=== PATIENT | male | born 1975 | race Two or more races ===

== ENCOUNTER 2017-05-31 23:02 | Inpatient (IN) | payer MEDICAID, OTHER ==
[~2017-05-31] VITALS: Ht 175.3 cm; Wt 99.8 kg
--- NOTE | 2017-05-31 23:05 | NUR ---
PT A/OX4 BREATHING EFFORTLESSLY ON ROOM AIR, PER PT FAMILY PT WAS FOUND LYING ON THE GROUND UNCONCIOUS, PER FAMILY NO ONE SAW HIM FALL, PT STATES HE DOES NOT REMEMBER ANY OF IT, PT ON MONITOR, IV PLACED LABS DRAWN, PT FAMILY AT BEDSIDE, PT C/O HEAD PAIN AND HAS A ALC ON HIS CHIN, PT DENIES NECK OR BACK PAIN AND IS ABLE TO MOVE ALL EXTREMITIES, MD AT BEDSIDE WILL CONTINUE TO MONITOR.
--- NOTE | 2017-05-31 23:25 | NUR ---
PT TO CT
[2017-05-31 23:29] LABS: BASOPHILS % (AUTO) 0.5 % (0.0-2.0); EOSINOPHILS # (AUTO) 0.2 /CMM (0.0-0.7); EOSINOPHILS % (AUTO) 1.8 % (0.0-6.0); HEMATOCRIT 47 % (39-51); HEMOGLOBIN 15.5 g/dL (13.5-17.5); LYMPHOCYTES # (AUTO) 4.1 /CMM (0.8-4.8); MEAN CORPUSCULAR HEMOGLOBIN 29 PG (26.0-33.0); MEAN CORPUSCULAR HGB CONC 34 g/dl (31.0-36.0); MEAN CORPUSCULAR VOLUME 86 fL (80-96); MONOCYTES # (AUTO) 0.7 /CMM (0.1-1.30); MONOCYTES % (AUTO) 7.6 % (2.0-12.0); NEUTROPHILS # (AUTO) 4.5 /CMM (1.8-8.9); NEUTROPHILS % (AUTO) 47.1 % (43.0-81.0); PLATELET COUNT (AUTO) 287 /CMM (150-450); RDW COEFFICIENT OF VARIATION 12.9 (11.5-15.0); RED BLOOD CELL COUNT(AUTO) 5.43 MIL/uL (4.5-6.0); WHITE BLOOD COUNT (AUTO) 9.5 K/uL (4.3-11.0)
[2017-05-31] MEDS ORDERED: MORPHINE SULFATE INJ 2 MG/ML DISP.SYRIN IV ONE (23:30)
[2017-05-31] MEDS ORDERED: IV NS 0.9% 1,000 ML BAG IV ONE (23:30)
[2017-05-31 23:39] LABS: CALCIUM, SERUM 9.2 mg/dL (8.5-10.1); CARBON DIOXIDE 29 mmol/L (21-32); CHLORIDE 106 mmol/L (98-107); CREATININE 0.8 mg/dL (0.6-1.3); GLUCOSE 83 mg/dL (74-106); POTASSIUM 3.7 mmol/L (3.5-5.1); SODIUM SERUM 142 mmol/L (136-145); UREA NITROGEN, BLOOD 8 mg/dL (7-18)
[2017-05-31 23:45] LABS: ALANINE AMINOTRANSFERASE 48 U/L (12-78); ALBUMIN 4.4 g/dL (3.4-5.0); ALKALINE PHOSPHATASE 68 U/L (46-116); ASPARTATE AMINOTRANSFERASE 24 U/L (15-37); BILIRUBIN,DIRECT 0.1 mg/dL (0.0-0.2); BILIRUBIN,TOTAL 0.3 mg/dL (0.2-1.0)
[2017-05-31 23:47] LABS: ALCOHOL, BLOOD < 3 mg/dL (0-0); TROPONIN I < 0.017 ng/mL (0.00-0.056)
[2017-05-31] MEDS ORDERED: MORPHINE SULFATE INJ 4 MG/ML DISP.SYRIN ONE (23:48)
--- NOTE | 2017-06-01 00:05 | NUR ---
PT STATES HE IS PAIN FREE AT THIS TIME, PT IS A/OX4 BREATHING EFFORTLESSLY ON ROOM AIR, PT FAMILY AT BEDSIDE WILL CONTINUE TO MONITOR.
--- NOTE | 2017-06-01 00:20 | NUR ---
CALLED DR CHARLIE NOLEN FOR CONSULT, LEFT A MESSAGE
[2017-06-01 00:24] LABS: INR 0.95 (0.87-1.13); PROTHROMBIN TIME 10.1 SECS (9.5-12.7)
--- NOTE | 2017-06-01 00:45 | NUR ---
PT IN BED ON MONITOR, PT A/OX4 BREATHING EFFOERTLESSLY ON ROOM AIR, PT DENIES PAIN AT THIS TIME PT FAMILY AT BEDSIDE MD MADE AWARE WILL CONTINUE TO MONITOR.
[2017-06-01] MEDS ORDERED: LEVETIRACETAM (500MG) 500 MG/5 ML VIAL IV ONE (00:56)
[2017-06-01] MEDS ORDERED: LEVETIRACETAM (500MG) 1,000 MG in IV NS 0.9% 100 ML IV SCH (01:00)
[2017-06-01] MEDS ORDERED: HYDROMORPHONE 1 MG/1 ML DISP.SYRIN ONE (01:11)
--- NOTE | 2017-06-01 01:15 | NUR ---
ASSIGNED ICU BED 257
[2017-06-01] MEDS ORDERED: IV NS 0.9% 250 ML IV ONE (01:20)
[2017-06-01] MEDS ORDERED: IOHEXOL-350 100 ML VIAL IV ONE (01:20)
[2017-06-01] MEDS ORDERED: NIMODIPINE (30MG) 30 MG CAPSULE PO ONE (01:30)
[2017-06-01] MEDS ORDERED: HYDROMORPHONE 1 MG/1 ML DISP.SYRIN IV ONE (01:30)
--- NOTE | 2017-06-01 01:47 | NUR ---
PT BACK FROM CT, PT PER IS STATING HE IS TIRED AND WANTING TO SLEEP, MD SALMA MADE AWARE WILL CONTINUE TO MONITOR.
--- NOTE | 2017-06-01 01:55 | NUR ---
PT URINATED 800ML AND URINE SAMPLE SENT TO LAB MD MADE AWARE WILL CONTINUE TO MONITOR.
[2017-06-01] MEDS ORDERED: NIMODIPINE (30MG) 30 MG CAPSULE ONE (01:58)
--- NOTE | 2017-06-01 02:08 | NUR ---
PT PUT ON 2 LITERS O2 NC FOR COMFORT
[2017-06-01 02:14] LABS: APPEARANCE,URINE CLEAR (CLEAR); BILIRUBIN,URINE NEGATIVE (NEGATIVE); BLOOD, URINE NEGATIVE Ery/uL (NEGATIVE); COLOR,URINE YELLOW (YELLOW); KETONES,URINE NEGATIVE (NEGATIVE); LEUKOCYTE ESTERASE ,URINE NEGATIVE (NEGATIVE); NITRITE, URINE NEGATIVE (NEGATIVE); PROTEIN,URINE NEGATIVE (NEGATIVE); UGLUCOSE NEGATIVE (NEGATIVE); UROBILINOGEN,URINE 0.2 EU/dL (0.2)
[2017-06-01] MEDS ORDERED: LIDOCAINE 2% 20 ML MDV ONE (02:51)
[2017-06-01] MEDS ORDERED: LIDOCAINE 2%-EPI 1:100,000 30 ML VIAL TP ONE (03:00)
[2017-06-01] MEDS ORDERED: LORAZEPAM INJ 2 MG/ML VIAL IV PRN (03:00)
[2017-06-01] MEDS ORDERED: MAG HYDROX/AL HYDROX/SIMETH 30 ML UDC PO PRN (03:00)
[2017-06-01] MEDS ORDERED: HYDROCODONE/APAP 5/325MG 1 EACH TABLET PO PRN (03:00)
[2017-06-01] MEDS ORDERED: MAGNESIUM HYDROXIDE 30 ML UDC PO PRN (03:00)
[2017-06-01] MEDS ORDERED: Z GUARD REMEDY 2 OZ OINT TP PRN (03:00)
[2017-06-01] MEDS ORDERED: MORPHINE SULFATE INJ 2 MG/ML DISP.SYRIN IV PRN (03:00)
[2017-06-01] MEDS ORDERED: ONDANSETRON HCL/PF 4 MG/2 ML VIAL IVP PRN (03:00)
[2017-06-01] MEDS ORDERED: ZOLPIDEM TARTRATE 5 MG TABLET PO PRN (03:00)
--- NOTE | 2017-06-01 03:00 | NUR ---
RN NOTE RECEIVED REPORT FROM WIRELESS SALES REPRESENTATIVE KYRA FOR CONTINUITY OF CARE.
[2017-06-01 03:15] VITALS: BP 151/86
--- NOTE | 2017-06-01 03:15 | NUR ---
RN INITIAL NOTE RECEIVED PT IN NO ACUTE DISTRESS IN BED. PT IS A/O X 3 AND ABLE TO MAKE NEEDS KNOWN. PT IS DROWSY BUT EASILY AROUSABLE. PT IS ON O2 VIA NC @ 2 LPM FOR COMFORT. PT TOLERATING O2 WITH O2 SAT @ 98%. PT NOT C/O ANY SOB, DIFFICULTY BREATHING OR PAIN AT THIS TIME. PT HAS RAC 18G THAT IS CLEAN DRY INTACT AND PATENT. BED IN LOW LOCK POSITION WITH RIALS UP X 2. CALL LIGHT WITHIN REACH AND ALL SAFETY MEASURES ENSURED AND CARRIED OUT. WILL CONTINUE TO MONITOR PT AND PERFORM FREQUENT NEURO CHECKS.
--- NOTE | 2017-06-01 03:22 | NUR ---
NO 2% LIDO WITH EPI IN ER, MD STATES JUST REGULAR 2% LIDO IS OK
[2017-06-01] MEDS: IV NS 0.9% 1,000 ML IV PRN ×2 (03:30→16:50)
[2017-06-01 04:00] VITALS: BP_SYST 133; BP_SYST 151; BP_DIAS 86; BP_DIAS 87
--- NOTE | 2017-06-01 06:55 | NUR ---
RN CLOSING NOTE PT REMAINS IN NO ACUTE DISTRESS IN BED. PT DID NOT HAVE ANY SIGNIFICANT CHANGE IN CONDITION DURING SHIFT. PT IS STILL ASLEEP AND EASILY AROUSABLE. WILL ENDORSE CARE TO AM RN FOR CONTINUITY OF CARE.
[2017-06-01] MEDS: ACETAMINOPHEN 325 MG TABLET PO PRN ×2 (07:36→14:32)
--- NOTE | 2017-06-01 07:50 | NUR ---
RN INITIAL NOTE RECEIVED REPORT FORM CARMITA PM SHIFT FOR HELGA. PT A/O 4 OCCITAN SPEAKING TELE SR. NC 2L NO C/O SOB. AND MOTHER AT BEDSIDE. IV RAC 18G NS @ 75 ML/HR. PT VOMITTED X3. ZOFRAN GIVEN BY CARMITA. PT C/O HEADACHE TYLENOL GIVEN. PT RESTING COMFORTABLY. WILL CONTINUE TO MONITOR CLOSELY. ALL SAFETY MEASURES IN PLACE. SEIZURE PRECAUTION.
[2017-06-01 08:00] VITALS: BP 138/90
[2017-06-01] MEDS: PANTOPRAZOLE 40 MG TABLET.DR PO SCH (08:08)
[2017-06-01 12:00] VITALS: BP_SYST 137; BP_SYST 138; BP_DIAS 76
[2017-06-01] MEDS: LEVETIRACETAM (500MG) 500 MG in IV NS 0.9% 100 ML IV SCH (12:31)
--- NOTE | 2017-06-01 15:15 | NUR ---
RN NOTE CALLED JAXSON ALVARADO N.P PT C/O HEADACHE. WILL COME TO SEE PT .
--- NOTE | 2017-06-01 15:47 | NUR ---
RN NOTE CALLED JAXSON AGAIN REGARDING PT HEADACHE. PT WANTS SOMETHING STRONGER THAN TYLENOL. EXPLAINED TO PT DR. YIN NEUROLOGIST SUGGESTION. PT IS SAYING PT CONTINUES TO C/O HEADACHE. PRICE ORDERED NORCO 5 MG .
[2017-06-01 16:00] VITALS: BP 141/86
--- NOTE | 2017-06-01 19:02 | NUR ---
RN CLOSING NOTE REPORT GIVEN TO RICHARD PM SHIFT FOR HELGA. PT A/O 4 SPANISH SPEAKING TELE SR. NC 2L NO C/O SOB. NO LONGER C/O HEADACHE. PT DID NOT EAT THROUGH EDUCATED ON IMPORTANCE. AND MOTHER AT BEDSIDE. IV RAC 18G NS @ 75 ML/HR. PZOFRAN GIVEN BY CARMITA. NO SIGNIFICANT NEUROLOGICAL CHANGE THROUGH OUT SHIFT FROM MY BASELINE THIS AM. ALL SAFETY MEASURES IN PLACE. SEIZURE PRECAUTION.
--- NOTE | 2017-06-01 19:30 | NUR ---
NEGAR RN INITIAL NOTE RECEIVED REPORT FROM ZULY HURST. PT IN BED, GUARDING HEAD COMPLAINING OF PAIN. PT AT BEDSIDE ABLE TO TRANSLATE. PT IS HUNGARIAN SPEAKING ONLY. PT IS IN BED. A/A/OX4. LUNG SOUNDS DIMINISHED. BOWEL SOUNDS PRESENT. PULSES PRESENT. IV PATENT AND INTACT. JAXSON MACHINE SHOP APPRENTICE AT BEDSIDE DUE TO COMPLAINTS OF HERNÁNDEZ. IDOKO D/C'D ALL SEDATING MEDICATIONS TO BE ABLE TO ASSESS NEURO STATUS. JAXSON GUZMÁN WITNESSED PT AMBULATE TODAY AND FEELS NORCO IS APPROPRIATE. WILL ADMINISTER MEDICATION. BED IN LOW LOCKED POSITION. CALL LIGHT WITHIN REACH.WILL CONTINUE TO MONITOR.
[2017-06-01] MEDS: HYDROCODONE/APAP 5/325MG 1 EACH TABLET PO PRN ×2 (19:41→23:37)
[2017-06-01 20:00] VITALS: BP 138/80
--- NOTE | 2017-06-01 20:50 | NUR ---
NEGAR RN PT COMPLAINING OF HERNÁNDEZ. PT EYES CLOSED, AT BEDSIDE TRANSLATING. PT SAYS MEDICATION INEFFECTIVE. ICE BAGS APPLIED TO NECK AND HEAD. BED IN LOW LOCKED POSITION. WILL CONTINUE TO MONITOR.
--- NOTE | 2017-06-01 21:00 | NUR ---
NEGAR RN DR YIN CALLED REGARDING PAIN CONTROL. AWAITING CALL BACK. WILL CONTINUE TO MONITOR.
--- NOTE | 2017-06-01 21:36 | NUR ---
NEGAR RN PT IN BED. EASILY AROUSBALE. PER PT PAIN IS STILL BAD. SPOKE W JAXSON TOBACCO CLASSER. NO ADDITIONAL ORDERS RECEIVED. TOBACCO CLASSER INSTRUCTED TO TURN LIGHTS DOWN AND ASK PT TO SLEEP. INFORMED THAT NO ADDITIONAL VISITORS WILL BE ALLOWED IN ORDER TO ALLOW PT TO REST. VERBALIZED UNDERSTANDING. WILL CONTINUE TO MONITOR.
[2017-06-02] VITALS (7 sets, daily range): BP systolic 126–144; BP diastolic 78–96
[2017-06-02] MEDS: LEVETIRACETAM (500MG) 500 MG in IV NS 0.9% 100 ML IV SCH ×2 (00:45→12:47)
[2017-06-02] MEDS: HYDROCODONE/APAP 5/325MG 1 EACH TABLET PO PRN ×4 (03:31→15:53)
[2017-06-02] MEDS: IV NS 0.9% 1,000 ML IV PRN ×2 (06:34→20:03)
[2017-06-02 07:18] LABS: BASOPHILS % (AUTO) 0.2 % (0.0-2.0); EOSINOPHILS % (AUTO) 0.3 % (0.0-6.0); HEMATOCRIT 41 % (39-51); LYMPHOCYTES # (AUTO) 2.8 /CMM (0.8-4.8); LYMPHOCYTES % (AUTO) 22.7 % (20.0-44.0); MEAN CORPUSCULAR HEMOGLOBIN 29 PG (26.0-33.0); MEAN CORPUSCULAR HGB CONC 34 g/dl (31.0-36.0); MEAN CORPUSCULAR VOLUME 85 fL (80-96); MONOCYTES # (AUTO) 0.9 /CMM (0.1-1.30); MONOCYTES % (AUTO) 7.7 % (2.0-12.0); NEUTROPHILS # (AUTO) 8.5 /CMM (1.8-8.9); NEUTROPHILS % (AUTO) 69.1 % (43.0-81.0); PLATELET COUNT (AUTO) 243 /CMM (150-450); RED BLOOD CELL COUNT(AUTO) 4.78 MIL/uL (4.5-6.0); WHITE BLOOD COUNT (AUTO) 12.3 K/uL (4.3-11.0)
--- NOTE | 2017-06-02 07:40 | NUR ---
DESKTOP SUPPORT MANAGER INITIAL NOTES REPORT RECEIVED AT THE BEDSIDE. PATIENT IS SLEEPING AT THIS TIME. NO SOB OR DISTRESS NOTED. PATIENT DOES NOT APPEAR TO BE IN PAIN, NO FACIAL GRIMACE NOTED. HEART RATE SR IN THE 70S. BED IN A LOW POSITION, CALL LIGHT WITHIN PATIENT REACH, FAMILY IS AT THE BEDSIDE. WILL CONTINUE TO MONITOR.
[2017-06-02 07:49] LABS: CALCIUM, SERUM 8.7 mg/dL (8.5-10.1); CREATININE 0.7 mg/dL (0.6-1.3); MAGNESIUM 1.9 mg/dL (1.8-2.4); PHOSPHORUS 3.1 mg/dL (2.5-4.9); POTASSIUM 4.1 mmol/L (3.5-5.1)
[2017-06-02] MEDS: PANTOPRAZOLE 40 MG TABLET.DR PO SCH (07:54)
[2017-06-02] MEDS: NIMODIPINE (30MG) 30 MG CAPSULE PO SCH ×2 (15:38→20:00)
--- NOTE | 2017-06-02 18:46 | NUR ---
MS RN CLOSING NOTES NO SIGNIFICANT CHANGES IN PATIENT CONDITION THROUGHOUT THE SHIFT. NO SOB OR DISTRESS NOTED AT THIS TIME. PATIENT IS SLEEPING AND DOES NOT APPEAR TO BE IN PAIN, NO FACIAL GRIMACE NOTED. BED IN A LOW POSITION, CALL LIGHT WITHIN PATIENT REACH. WILL ENDORSE FOR HELGA.
--- NOTE | 2017-06-02 20:00 | NUR ---
MS-1/NETWORK CONSULTANT PT IN BED, GUARDING HEAD COMPLAINING OF PAIN. PT AND MANY OTHER FAMILY MEMBERS AT BEDSIDE ABLE TO TRANSLATE. PT IS [place] SPEAKING ONLY. A/OX4. ANSWERING QUESTIONS APPROPRIATELY. PT IS REFUSING NORCO AT THIS TIME. HE FEELS LIKE IT DOESN'T TREAT HIS PAIN WELL. EXPLAINED TO PT THAT DUE TO HIS DIAGNOSIS AND RECOMMENDATION FROM DR. YIN. THAT NO STRONGER MEDICATION COULD BE PRESCRIBED AT THIS TIME. PT GIVEN ICE PACK FOR COMFORT. WILL CONTINUE TO MONITOR.
[2017-06-03] MEDS: LEVETIRACETAM (500MG) 500 MG in IV NS 0.9% 100 ML IV SCH (00:40)
[2017-06-03] MEDS: NIMODIPINE (30MG) 30 MG CAPSULE PO SCH ×4 (00:42→12:19)
[2017-06-03 04:00] VITALS: BP 145/87
[2017-06-03] MEDS: ACETAMINOPHEN 325 MG TABLET PO PRN (05:16)
[2017-06-03] MEDS: HYDROCODONE/APAP 5/325MG 1 EACH TABLET PO PRN (06:17)
--- NOTE | 2017-06-03 06:53 | NUR ---
MS-1/VISITOR SERVICES REPRESENTATIVE NO ACUTE CHANGE IN STATUS DURING MY SHIFT. WILL ENDORSE TO AM NURSE. WILL CONTINUE TO MONITOR.
--- NOTE | 2017-06-03 07:24 | NUR ---
RN INITIAL MS NOTE RECEIVED REPORT FROM NINI PM SHIFT FOR HELGA. PT A/O 4 LITHUANIAN SPEAKING . PT MS, RA. AT BEDSIDE. IV RAC 18G NS @ 75 ML/HR.PT RESTING COMFORTABLY. WILL CONTINUE TO MONITOR CLOSELY. ALL SAFETY MEASURES IN PLACE. SEIZURE PRECAUTION CONTINUED.
[2017-06-03 08:00] VITALS: BP 119/84
[2017-06-03] MEDS: PANTOPRAZOLE 40 MG TABLET.DR PO SCH (08:55)
[2017-06-03] MEDS: IV NS 0.9% 1,000 ML IV PRN (08:55)
[2017-06-03] MEDS ORDERED: LEVETIRACETAM (250 MG) 250 MG TABLET PO SCH (09:00)
--- NOTE | 2017-06-03 11:21 | NUR ---
RN NOTE PT IS ASKING FOR DC. SPOKE TO JAXSON AND NEURO CONSULT TOM PEDERSON ORDERED CT WITH OUT CONTRAST BEFORE DC.
[2017-06-03 12:19] VITALS: BP 133/84
[2017-06-03] MEDS ORDERED: LEVE250T2 PO (13:05)
[2017-06-03] MEDS ORDERED: HYDR-3326 PO (13:05)
--- NOTE | 2017-06-03 14:29 | NUR ---
THREAD WINDER NOTE PT DC HOME WITH MOTHER AND TRANSFERRED VIA WHEELCHAIR VIA PRIVATE CAR. REMOVED ID BAND AND IV. EXIT CARE AND CORE MEASURES DONE. SEIZURE EDUCATION AND HEMORRHAGIC STROKE EDUCATION DONE EDUCATED FAMILY AND PT. GAVE NEUROLOGIST INFORMATION FOR F/U IN 1 WK WITH TOM PEDERSON N.P. DC INSTRUCTIONS GIVEN TO . RX GIVEN TO . PT CLEAN AND DRY. SHIFT GIVEN TO PT. REFUSED SHIRT.
== END 2017-06-03 14:33 | disposition home or self-care (01) | DRG 55 ==
LOC: ER 23:03 → ICU 06-01 02:33 → TELE-TD 06-01 02:38 → TELE1 06-01 08:50 → MEDSG1 06-02 11:39
PROVIDERS: ADMIT Internal Medicine; ATTEND Nurse Practitioner Acute Care
DX: S06.5X9A Traumatic subdural hemorrhage with loss of consciousness of unspecified duration, initial encounter (principal); S06.6X9A Traumatic subarachnoid hemorrhage with loss of consciousness of unspecified duration, initial encounter; G93.40 Encephalopathy, unspecified; E87.2 Acidosis; G90.8 Other disorders of autonomic nervous system; J98.11 Atelectasis; W18.30XA Fall on same level, unspecified, initial encounter; Y92.008 Other place in unspecified non-institutional (private) residence as the place of occurrence of the external cause; R51 Headache; S00.83XA Contusion of other part of head, initial encounter
CPT/HCPCS: 36415; 70450-TC; 70496-TC; 71010-TC; 72040-TC; 80048-TC; 80061-TC; 80076-TC; 80305; 81000-TC; 83605-TC; 83735-TC; 84100-TC; 84484-TC; 85025-TC; 85610-TC; 85730-TC; 87081-TC; 93307-TC; 95819-TC; 97110-TC; 97116-TC; 97530-TC; A4606; A6402; G0480; J1170; J1953; J2270; J2405; J3490; J7030; J7050; Q9967; Z7610